=== PATIENT | female | born 1965 | race Caucasian/White ===

== ENCOUNTER 2025-06-09 16:48 | Inpatient (IN) | payer MEDICAID ==
[~2025-06-09] VITALS: Ht 152.4 cm; Wt 60.1 kg
[2025-06-09] MEDS ORDERED: ACET-907 PO (16:58)
[2025-06-09] MEDS: NS 500 ML IV ONE (17:20)
[2025-06-09] MEDS: ACETAMINOPHEN *IV* 1,000 MG in IV 1 EA IV ONE (17:40)
[2025-06-09] MEDS: ONDANSETRON 4MG 2ML VIAL IV ONE (17:40)
[2025-06-09] MEDS ORDERED: ISOVUE-370 76% 100 ML VIAL As Ordered ONE (17:44)
[2025-06-09 17:47] LABS: BASO # 0.0 10^3/uL (0.0-0.2); BASO % 0.2 % (0.0-1.0); EOS # 0.0 10^3/uL (0.0-0.5); EOS % 0.1 % (0.0-3.0); LYMPH # 1.7 10^3/uL (1.5-5.0); LYMPH % 19.0 % (24.0-44.0); MONO # 0.7 10^3/uL (0.0-0.8); MONO % 8.0 % (2.0-8.0); NEUTROPHILS # 6.4 10^3/uL (1.5-8.5); NEUTROPHILS % 72.4 % (36.0-66.0); PLATELET COUNT, AUTOMATED 304 10^3/uL (150-450)
[2025-06-09 18:00] LABS: INR 0.94
[2025-06-09 18:11] LABS: ALT/SGPT 73 U/L (7.0-40); AST/SGOT 86 U/L (<34); CALCIUM LEVEL 9.4 MG/DL (8.5-10.1); CARBON DIOXIDE LEVEL 24 MMOL/L (20-31); CHLORIDE LEVEL 101 MMOL/L (98-107); CREATININE FOR GFR 0.69 MG/DL (0.55-1.30); GLOMERULAR FILTRATION RATE > 90.0 (>51); POTASSIUM SERUM 4.9 MMOL/L (3.5-5.1); SODIUM LEVEL 139 MMOL/L (136-145)
[2025-06-09] MEDS: LevoFLOXacin IV 750 MG in IV 1 EA IV ONE (20:30)
[2025-06-09] MEDS: KETOROLAC 30 MG/ML 1 ML VIAL IV ONE (20:30)
[2025-06-09 20:43] LABS: KETONE, URINE AUTO RFX NEGATIVE (NEGATIVE); MUCUS, URINE RFX SMALL (NEGATIVE); NITRITE, URINE AUTO RFX NEGATIVE (NEGATIVE); RBC, URINE AUTO RFX 5 /HPF (0-3); SQUAM EPITHELIAL CELL UR AURFX 19 /HPF (0-6)
[2025-06-09 21:03] LABS: LEUKOCYTE ESTERASE UR AUTO RFX 2+ (NEGATIVE); WBC, URINE AUTO RFX 33 /HPF (0-3)
[2025-06-09] MEDS ORDERED: MORPHINE 2 MG/ML 1 ML VIAL IV PRN (21:20)
[2025-06-09] MEDS: metroNIDAZOLE 500 MG in IV 1 EA IV ONE (22:06)
[2025-06-09] MEDS ORDERED: ACET-683 PO (22:20)
[2025-06-09] MEDS ORDERED: BENA25TA5 PO (22:20)
[2025-06-09] MEDS ORDERED: HOME MED LIST COMPLETE! XX SCH (22:25)
[2025-06-09] MEDS: LR 1,000 ML IV SCH (22:43)
[2025-06-09] MEDS: PANTOPRAZOLE 40MG VIAL IV SCH (22:43)
[2025-06-10 01:13] VITALS: BP 121/65; TEMP 97.2; O2SAT 97
[2025-06-10] MEDS ORDERED: MORPHINE 2 MG/ML 1 ML VIAL IV PRN (01:20)
[2025-06-10] MEDS: ACETAMINOPHEN 325 MG TAB PO PRN (05:55)
[2025-06-10] MEDS: metroNIDAZOLE 500 MG in IV 1 EA IV SCH (05:55)
[2025-06-10 06:01] VITALS: BP 98/64; TEMP 97.3; O2SAT 98
[2025-06-10 06:57] LABS: BASO # 0.0 10^3/uL (0.0-0.2); BASO % 0.5 % (0.0-1.0); EOS # 0.1 10^3/uL (0.0-0.5); EOS % 1.4 % (0.0-3.0); LYMPH # 1.5 10^3/uL (1.5-5.0); LYMPH % 33.0 % (24.0-44.0); MONO # 0.5 10^3/uL (0.0-0.8); MONO % 10.6 % (2.0-8.0); NEUTROPHILS # 2.4 10^3/uL (1.5-8.5); NEUTROPHILS % 54.3 % (36.0-66.0); PLATELET COUNT, AUTOMATED 260 10^3/uL (150-450)
[2025-06-10 07:19] LABS: ALT/SGPT 45 U/L (7.0-40); AST/SGOT 39 U/L (<34); CALCIUM LEVEL 8.6 MG/DL (8.5-10.1); CARBON DIOXIDE LEVEL 24 MMOL/L (20-31); CHLORIDE LEVEL 105 MMOL/L (98-107); CREATININE FOR GFR 0.71 MG/DL (0.55-1.30); GLOMERULAR FILTRATION RATE > 90.0 (>51); MAGNESIUM LEVEL 1.9 MG/DL (1.8-2.4); POTASSIUM SERUM 4.3 MMOL/L (3.5-5.1); SODIUM LEVEL 141 MMOL/L (136-145)
[2025-06-10] MEDS: ENOXAPARIN 40 MG/0.4 ML SYRINGE (J1650 PER 10MG) SC SCH (08:24)
[2025-06-10 11:36] LABS: HEPATITIS C VIRUS ABY INDEX < 0.02 INDEX (<0.8)
[2025-06-10 12:00] VITALS: BP 102/66; TEMP 97.5; O2SAT 99
[2025-06-10] MEDS: ONDANSETRON 4MG ORAL DISINTEGRATING TAB PO PRN (16:16)
[2025-06-10 20:08] VITALS: BP 121/72; TEMP 97.7; O2SAT 97
[2025-06-10] MEDS: LevoFLOXacin IV 750 MG in IV 1 EA IV SCH (20:49)
[2025-06-11 05:05] VITALS: BP 118/73; TEMP 97.9; O2SAT 94
[2025-06-11] MEDS: IBUPROFEN 400 MG TAB PO PRN (05:51)
[2025-06-11 08:10] LABS: BASO # 0.0 10^3/uL (0.0-0.2); BASO % 0.3 % (0.0-1.0); EOS # 0.0 10^3/uL (0.0-0.5); EOS % 1.0 % (0.0-3.0); LYMPH # 0.9 10^3/uL (1.5-5.0); LYMPH % 29.6 % (24.0-44.0); MONO # 0.3 10^3/uL (0.0-0.8); MONO % 10.8 % (2.0-8.0); NEUTROPHILS # 1.7 10^3/uL (1.5-8.5); NEUTROPHILS % 58.0 % (36.0-66.0); PLATELET COUNT, AUTOMATED 268 10^3/uL (150-450)
[2025-06-11 08:54] LABS: ALT/SGPT 39 U/L (7.0-40); AST/SGOT 29 U/L (<34); CALCIUM LEVEL 8.9 MG/DL (8.5-10.1); CARBON DIOXIDE LEVEL 28 MMOL/L (20-31); CHLORIDE LEVEL 105 MMOL/L (98-107); CREATININE FOR GFR 0.76 MG/DL (0.55-1.30); GLOMERULAR FILTRATION RATE > 90.0 (>51); MAGNESIUM LEVEL 1.9 MG/DL (1.8-2.4); POTASSIUM SERUM 4.5 MMOL/L (3.5-5.1); SODIUM LEVEL 143 MMOL/L (136-145)
[2025-06-11] MEDS: D5W/0.45% SODIUM CHLORIDE 1,000 ML IV SCH (11:43)
[2025-06-11 12:00] VITALS: BP 121/74; TEMP 97.7; O2SAT 97
[2025-06-11] MEDS: ONDANSETRON 4MG 2ML VIAL IV PRN (14:09)
[2025-06-11 20:20] VITALS: BP 142/97; TEMP 97.7; O2SAT 96
[2025-06-11] MEDS ORDERED: MAALOX 30 ML SUSP *UDC PO PRN (23:55)
[2025-06-12 05:40] VITALS: BP 126/78; TEMP 97.9; O2SAT 99
[2025-06-12 07:46] LABS: BASO # 0.0 10^3/uL (0.0-0.2); BASO % 0.8 % (0.0-1.0); EOS # 0.0 10^3/uL (0.0-0.5); EOS % 0.8 % (0.0-3.0); LYMPH # 1.1 10^3/uL (1.5-5.0); LYMPH % 43.2 % (24.0-44.0); MONO # 0.3 10^3/uL (0.0-0.8); MONO % 14.0 % (2.0-8.0); NEUTROPHILS # 1.0 10^3/uL (1.5-8.5); NEUTROPHILS % 41.2 % (36.0-66.0); PLATELET COUNT, AUTOMATED 286 10^3/uL (150-450)
[2025-06-12 07:55] LABS: ALT/SGPT 34 U/L (7.0-40); AST/SGOT 33 U/L (<34); CALCIUM LEVEL 9.0 MG/DL (8.5-10.1); CARBON DIOXIDE LEVEL 25 MMOL/L (20-31); CHLORIDE LEVEL 107 MMOL/L (98-107); CREATININE FOR GFR 0.75 MG/DL (0.55-1.30); GLOMERULAR FILTRATION RATE > 90.0 (>51); MAGNESIUM LEVEL 2.0 MG/DL (1.8-2.4); POTASSIUM SERUM 4.0 MMOL/L (3.5-5.1); SODIUM LEVEL 143 MMOL/L (136-145)
[2025-06-12 12:00] VITALS: BP 146/90; TEMP 97.5; O2SAT 98
[2025-06-12] MEDS ORDERED: ONDA-83 PO (13:28)
[2025-06-12] MEDS ORDERED: LEVO75TAB PO (13:28)
[2025-06-12] MEDS ORDERED: METR-265 PO (13:28)
[2025-06-12] MEDS ORDERED: OXYC1TAB23 PO (13:28)
== END 2025-06-12 15:30 | disposition home or self-care (01) | DRG 244 ==
LOC: M ED 16:48 → M ED INP 21:00 → M MS5PR 06-10 01:15
PROVIDERS: ADMIT Internal Medicine; ATTEND Internal Medicine
DX: K57.32 Diverticulitis of large intestine without perforation or abscess without bleeding (principal); K76.0 Fatty (change of) liver, not elsewhere classified; K76.89 Other specified diseases of liver; Z90.49 Acquired absence of other specified parts of digestive tract; Z88.0 Allergy status to penicillin; Z88.5 Allergy status to narcotic agent; R74.01 Elevation of levels of liver transaminase levels

== ENCOUNTER → 2025-07-14 | Outpatient (REF) | payer MEDICAID, OTHER ==
[~2025-07-14] MED LIST: ACET-683 PO; ACET-907 PO; BENA25TA5 PO; LEVO75TAB PO; METR-265 PO; ONDA-83 PO; OXYC1TAB23 PO
[2025-07-14 15:01] LABS: BASO # 0.0 10^3/uL (0.0-0.2); BASO % 0.6 % (0.0-1.0); EOS # 0.0 10^3/uL (0.0-0.5); EOS % 0.4 % (0.0-3.0); LYMPH # 1.8 10^3/uL (1.5-5.0); LYMPH % 37.8 % (24.0-44.0); MONO # 0.5 10^3/uL (0.0-0.8); MONO % 10.3 % (2.0-8.0); NEUTROPHILS # 2.4 10^3/uL (1.5-8.5); NEUTROPHILS % 50.9 % (36.0-66.0); PLATELET COUNT, AUTOMATED 269 10^3/uL (150-450)
[2025-07-14 15:04] LABS: ESTIMATED AVERAGE GLUCOSE 117.0 MG/DL (60-110)
[2025-07-14 15:07] LABS: ALT/SGPT 24 U/L (7.0-40); AST/SGOT 28 U/L (<34); CALCIUM LEVEL 10.3 MG/DL (8.5-10.1); CARBON DIOXIDE LEVEL 28 MMOL/L (20-31); CHLORIDE LEVEL 103 MMOL/L (98-107); CHOLESTEROL LEVEL 289 MG/DL (<200); CHOLESTEROL RISK RATIO 3.61 (<5); CREATININE FOR GFR 0.71 MG/DL (0.55-1.30); FREE T4 1.29 NG/DL (0.89-1.76); GLOMERULAR FILTRATION RATE > 90.0 (>51); LDL CHOLESTEROL 170.2 MG/DL (<100); NON-HDL-C 209.0 MG/DL; POTASSIUM SERUM 4.4 MMOL/L (3.5-5.1); SODIUM LEVEL 141 MMOL/L (136-145); TRIGLYCERIDES LEVEL 194 MG/DL (<150)
== END ==
LOC: M LAB REF 14:30
PROVIDERS: ATTEND Physician Assistant
DX: R74.01 Elevation of levels of liver transaminase levels (principal); K57.32 Diverticulitis of large intestine without perforation or abscess without bleeding; D25.9 Leiomyoma of uterus, unspecified; Z13.1 Encounter for screening for diabetes mellitus

== ENCOUNTER → 2025-09-21 | Outpatient (REF) | payer OTHER ==
[2025-09-23 14:22] LABS: HPV APTIMA Not Detected (Not Detected)
== END ==
LOC: M LAB REF 16:41
PROVIDERS: ATTEND Physician Assistant
DX: Z12.4 Encounter for screening for malignant neoplasm of cervix (principal); R87.610 Atypical squamous cells of undetermined significance on cytologic smear of cervix (ASC-US)